=== PATIENT | male | born 1970 ===

== ENCOUNTER 2024-03-06 03:58 | Day surgery (SDC) | payer OTHER ==
[2024-03-02 11:43] VITALS: BMI 28.8
[2024-03-06] MEDS ORDERED: PROPOFOL 20 ML ONE (08:45)
[2024-03-06] MEDS ORDERED: LIDOCAINE HCL/PF 2% SDV 5ML VIAL ONE (08:45)
[2024-03-06] MEDS ORDERED: MIDAZOLAM HCL 2 MG/2 ML SINGLE DOSE VIAL ONE (08:46)
[2024-03-06] MEDS ORDERED: BUPIVACAINE HCL/PF 0.25% (2.5MG/ML) 10 ML VIAL ONE (09:14)
[2024-03-06] MEDS ORDERED: CEFOXITIN SODIUM 2 GM IVPB ONE (09:29)
[2024-03-06] MEDS: cefOXitin SODIUM 2 GM VIAL (RESTRICTED TO ID) IVPB ONE (09:38)
[2024-03-06] MEDS ORDERED: DEXAMETHASONE SOD PHOSPHATE 4 MG/1 ML VIAL ONE (09:39)
[2024-03-06] MEDS ORDERED: KETOROLAC TROMETHAMINE 30 MG/1 ML VIAL ONE (09:39)
[2024-03-06] MEDS ORDERED: ONDANSETRON 4 MG/2 ML VIAL ONE (09:39)
[2024-03-06] MEDS: BUPIVACAINE HCL/PF 0.25% (2.5MG/ML) 10 ML VIAL IJ ONE (09:43)
[2024-03-06] MEDS ORDERED: ROCURONIUM BROMIDE 50 MG/5 ML SYRINGE ONE (09:54)
[2024-03-06] MEDS ORDERED: PROMETHAZINE HCL 25 MG/1 ML VIAL IVPB PRN (10:06)
[2024-03-06] MEDS ORDERED: oxyCODONE HCL 5 MG TABLET PO PRN ×2 (10:06)
[2024-03-06] MEDS ORDERED: ONDANSETRON 4 MG/2 ML VIAL IVPUSH PRN (10:06)
[2024-03-06] MEDS: LACTATED RINGERS SOLUTION 1,000 ML IV SCH (10:30)
[2024-03-06] MEDS ORDERED: ACETAMINOPHEN INJECTION 100 ML ONE (10:36)
[2024-03-06] MEDS: ACETAMINOPHEN 1000 MG/100 ML BAG IVPB ONE (10:39)
[2024-03-06 13:15] VITALS: RESP 20
[2024-03-06 13:47] VITALS: BP 127/81; PULSE 71; TEMP 97.2
== END 2024-03-06 13:38 | disposition home or self-care (01) ==
LOC: JASU-SURG 03:58
PROVIDERS: ATTEND Surgery
PROC: 0DBQ7ZX Excision of Anus, Via Natural or Artificial Opening, Diagnostic (ICD-10-PCS; principal; 2024-03-06 09:30)
DX: K62.0 Anal polyp (principal); D17.79 Benign lipomatous neoplasm of other sites
CPT/HCPCS: 88305-TC; 94760; J0131